=== PATIENT | female | born 1975 | race Caucasian/White ===

== ENCOUNTER 2020-08-08 12:43 | Outpatient (REF) | payer OTHER, SELFPAY ==
--- NOTE | 2020-08-08 12:48 | MM_ITS ---
EXAMINATION: MM SCREENING DIGITAL BREAST TOMOSYNTHESIS, BILATERAL CLINICAL INFORMATION: Screening. Asymptomatic. The lifetime risk of breast cancer based on the Tyrer-Cuzick Model is 7.8%. COMPARISON: Mammography: April 01, 2019 TECHNIQUE: Digital breast tomosynthesis is performed in both the craniocaudal and mediolateral oblique views along with computer-aided detection (CAD). Synthesized 2D images are generated from the tomosynthesis. FINDINGS: The breasts are heterogeneously dense, which may obscure small masses (ACR BI-RADS breast composition Category c). There are no significant masses, abnormal calcifications, or other abnormalities. MM/MM tomosynthesis screening BI IMPRESSION: There are no significant changes from prior study. ASSESSMENT: BI-RADS 1: Negative RECOMMENDATION: Routine annual mammography screening. This patient's information was entered into a reminder system with a target due date for their next mammogram.
== END 2020-08-08 12:44 | disposition home or self-care (01) ==
LOC: HO.MAMMO 12:43
PROVIDERS: PCP Student in an Organized Health Care Education/Training Program; Visit Provider Student in an Organized Health Care Education/Training Program
DX: Z12.31 Encounter for screening mammogram for malignant neoplasm of breast (principal)
CPT/HCPCS: 77063; 77067

== ENCOUNTER 2025-05-26 09:42 | Outpatient (REF) | payer OTHER, SELFPAY ==
--- OUTSIDE RECORDS SUMMARY | 2025-05-24 10:45 | XMS_ITS | Encounter Summary ---
Author Organization [facility] Address [address] [place] [address] Care Team Providers Care Director Of Strategic Initiatives Name Role Phone Leon Mclean CNP Primary Care Provider [phone] Reason for Referral * Cardiology (Routine) - Authorized Specialty Diagnoses / Procedures Referred By Lourdes stanton Referred To Contact Cardiology Diagnoses Palpitations Procedures Holter monitor - 48 hour Leon Mclean CNP [address] [place] [address] Phone: tel: fax: [facility] Referral ID Status Reason Start Date Expiration Date V isits Requested Visits Authorized [id number] Authorized 05/24/2025 05/24/2026 1 1 * Consultation (Routine) - Authorized Specialty Diagnoses / Procedures Referred By Lourdes stanton Referred To Contact Podiatry Diagnoses Encounter for physical examination Onychomycosis of great toe Type 2 diabetes mellitus without complication, with long-term current use of insulin ([facility]) Leon Mclean CNP [address] [place] [address] Phone: tel: fax: Boogie Rosas DPM [address] [facility] [address] [place] [id number] Phone: tel: fax: Referral ID Status Reason Start Date Expiration Date Visits Requested Visits Authorized [id number] Authorized Specialty Services Required 05/24/2025 05/24/2026 1 1 * Imaging (Routine) - Closed Specialty Diagnoses / Procedures Referred By Lourdes stanton Referred To Contact Radiology Diagnoses Encounter for screening mammogram for breast cancer Procedures BI Mammogram Screening Tomosynthesis Bilateral Leon Mclean CNP [address] [place] [address] Phone: tel: fax: [facility] Referral ID Status Reason Start Date Expiration Date Visits Re quested Visits Authorized [id number] Closed 05/24/2025 05/24/2026 1 1 Encounter Details Date Type Department Care Team (Late st Contact Info) Description 05/24/2025 10:45 AM EST Office Visit [facility] [address] [place] [address] Leon Mclean CNP [address] [place] [address] Encounter for physical examination (Primary Dx); Encounter for screening mammogram for breast cancer; Encounter for immunization; Onychomycosis of great toe; Palpitations; Type 2 diabetes mellitus without complication, with long-term current use of insulin (HCC) Social History Tobacco Use Types Packs/Day Years Used Date Smoking Tobacco: Never Smokeless Tobacco: Never Alcohol Use Standard Drinks/Week Comments Never 0 (1 standard drink = 0.6 oz pur e alcohol) Depression Answer Date Recorded Patient Health Questionnaire-9 Score 10 05/24/2025 Patient Health Questionnaire-9 Score 10 05/24/2025 Last PHQ-9: Questionnaire Data Not on file 1 07/24/2024 Housing Stability Answer Date Recorded What is your housing situation today? I have bella schroeder 05/24/[address] you li ve. Do you have problems with any of the following? None of the above 05/24/2025 Food Insecurity Answer Date Recorded Within the past 12 months, y ou worried that your food would run out before you got money to buy more: Sometimes True 2024 Within the past 12 months,th e food you bought just didn't last and you didn't have enough money to get more: Sometimes True 05/24/2025 Transportation Answer Date Recorded In the past 12 months, has l ack of transportation kept you from medical appts, meetings, work or from getting things needed for daily living? No 05/24/2025 Utilities Answer Date Recorded In the past 12 months, has t he electric, gas, oil or water company threatened to shut off services in your home? No 05/24/2025 Depression Answer Date Recorded Patient Health Questionnaire-2 Score 3 05/24/2025 Internet Access Answer Date Recorded Internet Access Q1 No 05/24/2025 Internet Access Q2 I cannot afford it 05/24/2025 Comments No Sex and Gender Information Value Date Recorded Sex Assigned at Female 05/19/2022 10:21 AM EDT Legal Sex Female 10:21 AM EDT Gender Identity Choose not to disclose 10:21 AM EDT Sexual Orientation Choose not to disclose 2021 10:21 AM EDT documented as of this encounter Last Filed Vital Signs Vital Sign Reading Time Taken Comments Blood Pressure 148/86 05/24/2025 10:45 AM EST Pulse 84 05/24/2025 10:45 AM EST Temperature 36.3 C (97.3 F) 05/24/2025 10:45 AM EST Respiratory Rate 14 05/24/2025 10:45 AM EST Oxygen Saturation 98% 05/24/2025 10:45 AM EST Inhaled Oxygen Concentration - - Weight 81.2 kg (179 lb) 05/24/2025 10:45 AM EST Height 152.4 cm (5') 05/24/2025 10:45 AM EST Body Mass Index 34.96 05/24/2025 10:45 AM EST documented in this encounter Functional Status * Over the past 2 weeks, how often have you been bothered by any of the following problems? Question Answer Date of Assessment Author Patient Health Questionnaire -2 Score 3 05/24/2025 10:48 AM EST Sa kaya Matta [place] * Little interest or pleasure in doing things Answer Date of Assessment Author Several days 05/24/2025 10:48 AM EST Jeanette Lagos [place] * Feeling down, depressed, or hopeless Answer Date of Assessment Author More than half the days 05/24/2025 10:48 AM EST Jeanette Matta MA * Trouble falling or staying asleep, or sleeping too much Answer Date of Assessment Author Not at all 05/24/2025 10:48 AM Jeanette Reyes MA * Feeling tired or having little energy Answer Date of Assessment Author Nearly every day 05/24/2025 10:48 AM Jeanette Todd MA * Poor appetite or overeating Answer Date of Assessment Author Not at all 05/24/2025 10:48 AM Jeanette Reyes MA * Feeling bad about yourself - or that you are a failure or have let yourself or your family down Answer Date of Assessment Author More than half the days 05/24/2025 10:48 AM Jeanette Adorno MA * Trouble concentrating on things, such as reading the newspaper or watching television Answer Date of Assessment Author Not at all 05/24/2025 10:48 AM Jeanette Reyes MA * Moving or speaking so slowly that other people could have noticed? Or the opposite - being so fidgety or restless that you have been moving around a lot more than usual. Answer Date of Assessment Author More than half the days 05/24/2025 10:48 AM Jeanette Adorno MA * Thoughts that you would be better off or hurting yourself in some way Answer Date of Assessment Author Not at all 05/24/2025 10:48 AM Jeanette Reyes MA * Patient Health Questionnaire-9 Score Answer Date of Assessment Author 10 05/24/2025 10:48 AM Jeanette Reyes MA * How difficult have these problems made it for you to do your work, take care of things at home, or get along with other people? Answer Date of Assessment Author Not difficult at all 05/24/2025 10:48 AM Jeanette Olea MA * Over the last 2 weeks, how often have you been bothered by any of the following problems? Question Answer Date of Assessment Author Feeling nervous, anxious, or on edge 2 05/24/2025 10:48 AM Sa kaya Adorno MA Not being able to stop or control worrying 2 05/24/2025 10:48 AM Sa kaya Adorno MA Worrying too much about different things 2 05/24/2025 10:48 AM Sa kaya Adorno MA Trouble relaxing 0 05/24/2025 10:48 AM Jeanette Adorno MA Being so restless that it is hard to sit still 2 05/24/2025 10:48 AM Sa kaya Adorno MA Becoming easily annoyed or irritable 3 05/24/2025 10:48 AM Sa kaya Adorno MA Feeling afraid as if somethi ng awful might happen 1 05/24/2025 10:48 AM Sa kaya Adorno MA MARYBEL-7 Total Score 12 05/24/2025 10:48 AM Jeanette Adorno MA documented as of this encounter Progress Notes * Leon Mclean CNP - 05/24/2025 10:45 AM EST Subjective: Patricia Wolfe is a 49 y.o. choose not to disclose pt with PMH of hypertension, HLD, DM who presents to the office for a transfer patient visit. Previous PCP Beth Wheeler MD . Interim history: Pt last seen by prior PCP 05/2024 for f/u. At this point hypertension deemed stable. As for her T2DM, last A1c of 8.9 pt taking trulicity 1.5mg. She reports she hasn't used Trulicity for some time because her refrigerator was broken for awhile but now it is functioning properly. She does not have med on hand. She also is reporting polyuria at nighttime. Denies any other associated symptoms. Reports she has taken metformin in the past but did not tolerate it due to adverse side effects. Current concerns: Tachycardia: reporting x 1 w, last few about a few minutes, happens randomly, reports SOB when thishappens as well as mild CP. She denies having those symptoms currently, the symptoms are intermittent in nature. 2. Foot fungus: pt reports fungus on her toenail, unspecified toenail and declines exam today Problem List[1] Surgical History[2] Family History[3] Social History Living situation: has secure housing Employment/Education: Diet/exercise: not reported Substance use: denies all substance use. Sexual activity: AMAB partner, requests STI testing Contraception: none, not seeking Mental health: Patient Health Questionnaire-9 Score: 10 (05/24/2025 10:48 AM) Patient Health Questionnaire-2 Score: 3 (05/24/2025 10:48 AM) Thoughts that you would be better off or hurting yourself in some way: Not at all (05/24/2025 10:48 AM) MARYBEL-7 Total Score: 12 (05/24/2025 10:48 AM) Patient's last menstrual period was 05/13/2025. Allergies[4] Review of Systems Vitals: 05/24/25 1045 BP: (!) 148/86 BP Location: Left arm Patient Position: Sitting BP Cuff Size: Adult Pulse: 84 Resp: 14 Temp: 97.3 ??F (36.3 ??C) TempSrc: Oral SpO2: 98% Weight: 179 lb (81.2 kg) Height: 5' (1.524 m) Physical Exam Vitals reviewed. Constitutional: General: Patricia is not in acute distress. Appearance: Normal appearance. Patricia is not ill-appearing, toxic-appearing or diaphoretic. HENT: Head: Normocephalic and atraumatic. Cardiovascular: Rate and Rhythm: Normal rate and regular rhythm. Pulses: Normal pulses. Heart sounds: Normal heart sounds. No murmur heard. No friction rub. No gallop. Pulmonary: Effort: Pulmonary effort is normal. No respiratory distress. Breath sounds: Normal breath sounds. No stridor. No wheezing, rhonchi or rales. Chest: Chest wall: No tenderness. Musculoskeletal: Right lower leg: No edema. Left lower leg: No edema. Neurological: General: No focal deficit present. Mental Status: Patricia is alert and oriented to person, place, and time. Mental status is at baseline. Psychiatric: Mood and Affect: Mood normal. Behavior: Behavior normal. Thought Content: Thought content normal. Judgment: Judgment normal. Assessment & Plan Encounter for physical examination 49 y/o Female with physical exam showing no acute abnormalities. 1. Anticipatory guidance discussed. Specific topics reviewed: drugs, ETOH, and tobacco, importance of regular dental care, importance of regular exercise, importance of varied diet, minimize junk food, and sex; STD and prevention as appropriate. 2. Age appropriate screenings discussed 3. Pt agrees to flu shot and PCV20 4. Pt requests STI testing today. Routine Screening and Health Maintenance Optometry: Yes Dentist: Yes ASCVD risk: 49 y.o. adult The 10-year ASCVD risk score (Nery TORREZ, et al., 2019) is: 3.9% Values used to calculate the score: Age: 49 years Sex: Female Is Non- : No Diabetic: Yes Tobacco smoker: No Systolic Blood Pressure: 148 mmHg Is BP treated: Yes HDL Cholesterol: 62 mg/dL Total Cholesterol: 221 mg/dL Lab Review: orders written for new lab studies as appropriate; see orders Routine Cancer Screening Breast CA: due pt referred today Cervical CA: due, will complete this at schedule f/u. Colon CA: neg Cologuard 12/2023, next due 12/2026 Orders: Lipid Panel, Standard Comprehensive Metabolic Panel Albumin, Random Urine W/Creatinine CBC auto differential POCT A1c POCT glucose manually resulted Referral to Podiatry; Future Hepatitis B Surface Antibody, Qualitative; Future Hepatitis B Core Antibody, Total; Future Hepatitis B surface antigen, EIA; Future Chlamydia/N. Gonorrhoeae RNA, TMA, Vaginal HIV-1/2 Antigen and Antibodies, Fourth Generation, with Reflexes; Future Hepatitis C Antibody with Reflex to HCV, RNA, Quantitative, Real-Time PCR; Future Encounter for screening mammogram for breast cancer Orders: BI Mammogram Screening Tomosynthesis Bilateral Encounter for immunization Orders: FLU VACCINE TRIVALENT [id number] (Fluarix) 19 yrs + PCV-20 VACCINE 6 wks + Onychomycosis of great toe Exam declined by pt today However she requests referral to deputy sheriff generalist which was placed today Orders: Referral to Podiatry; Future Palpitations Palpitations are transient in nature therefore will obtain holter monitoring to evaluate possible etiologies. Pt has CVD risk factors including DM, HLD, and hypertension. If holter monitor is unremarkeable may consider TTE to r/o structural etiologies. Orders: Holter monitor - 48 hour; Future Type 2 diabetes mellitus without complication, with long-term current use of insulin (HCC) Lab Results Component Value Date HGBA1C 11.3 (A) 05/24/2025 A1c is uncontrolled and pt is symptomatic with polyuria. I ordered routine labs including urine protein levels for pt to complete. We will reinitiate Trulicity at starting dose. Considered adjunctive metformin however previously not tolerated by pt, considered glipizide however reports hypoglycemia with this med. We will initiate jardiance at 10mg daily to reduce risk of cardiovascular mortality and improve glycemic control Orders: Trulicity 0.75 MG/0.5ML solution auto-injector; Inject 0.5 mL under the skin 1 (one) time per week. empagliflozin (Jardiance) 10 MG; Take 1 tablet (10 mg) by mouth Once per day. Current Medications[5] Immunization History Administered Date(s) Administered Influenza injectable quadrivalent IIV4 with preservative 05/27/2018 Influenza injectable quadrivalent preservative free 09/09/2016, 06/18/2017, 04/15/2019, 04/12/2020,10/04/2020 Influenza, seasonal, injectable, preservative free 06/10/2014, 06/10/2024, 05/24/2025 Pneumococcal Conjugate PCV 20 05/24/2025 Tdap 05/27/2018 Follow up in about 1 month (around 06/23/2025) for f/u for pap smear. AND DM f/u [1] Patient Active Problem List Diagnosis Amenorrhea Diabetes mellitus (HCC) Open angle with borderline intraocular pressure Essential hypertension Pure hypercholesterolemia [2] No past surgical history on file. [3] No family history on file. [4] No Known Allergies [5] Current Outpatient Medications Medication Sig Dispense Refill Alcohol Swabs (Alcohol Prep) 70 % pads USE THREE DAILY 100 each 11 Aspirin Adult Low Strength 81 MG EC tablet TAKE ONE TABLET EVERY EVENING 60 tablet 11 Blood Glucose Monitoring Suppl (FreeStyle glucose monitoring) kit 1 each in the morning and at bedtime. 1 each 3 Blood Pressure kit Check blood pressure daily 1 kit 0 Continuous Glucose Plasterer Journeyman (FreeStyle Lorraine 2 Truxton) device Scan sensor every 8 hours 1 each 0 Continuous Glucose Sensor (FreeStyle Lorraine 2 Sensor) misc Apply 1 sensor every 14 days 2 each 2 Easy Touch Lancets 33G/Twist misc TEST BLOOD SUGAR THREE TIMES DAILY 100 each 0 empagliflozin (Jardiance) 10 MG Take 1 tablet (10 mg) by mouth Once per day. 30 tablet 11 glucose blood (FREESTYLE LITE) test strip TEST BLOOD SUGAR THREE TIMES DAILY USE TO TEST BLOOD SUGAR THREE TIMES DAILY 100 strip 0 Heartburn Relief 10 MG tablet TAKE ONE TABLET EVERY MORNING NEEDED 30 tablet 3 hydroCHLOROthiazide (HYDRODiuril) 25 MG tablet TAKE ONE TABLET EVERY MORNING 30 tablet 11 ibuprofen 600 MG tablet Take 1 tablet by mouth every 6 (six) hours. lisinopril 40 MG tablet TAKE ONE TABLET EVERY MORNING 90 tablet 3 simvastatin (Zocor) 40 MG tablet Take 1 tablet (40 mg) by mouth at bedtime. 90 tablet 0 Trulicity 0.75 MG/0.5ML solution auto-injector Inject 0.5 mL under the skin 1 (one) time per week. 2 mL 1 No current facility-administered medications for this visit. documented in this encounter Miscellaneous Notes * Assessment & Plan Note - Leon Mclean CNP - 05/24/2025 10:45 AM EST Associated Problem(s): Diabetes mellitus (HCC) Lab Results Component Value Date HGBA1C 11.3 (A) 05/24/2025 A1c is uncontrolled and pt is symptomatic with polyuria. I ordered routine labs including urine protein levels for pt to complete. We will reinitiate Trulicity at starting dose. Considered adjunctive metformin however previously not tolerated by pt, considered glipizide however reports hypoglycemia with this med. We will initiate jardiance at 10mg daily to reduce risk of cardiovascular mortality and improve glycemic control Orders: Trulicity 0.75 MG/0.5ML solution auto-injector; Inject 0.5 mL under the skin 1 (one) time per week. empagliflozin (Jardiance) 10 MG; Take 1 tablet (10 mg) by mouth Once per day. documented in this encounter Plan of Treatment Upcoming Encounters Date Type Department Care Team (Late st Contact Info) Description 07/06/2025 11:00 AM EST Procedure Visit [facility] [address], [place] [id number] Leon Mclean CNP [address] [place] [address] Scheduled Orders Name Type Priority Associated Diagnoses Orde r Schedule Lipid Panel, Standard Lab Routine Encounter for physical examination Ordered: 05/24/2025 Comprehensive Metabolic Panel Lab Routine Encounter for physical examination Ordered: 05/24/2025 Albumin, Random Urine W/Creatinine Lab Routine Encounter for physical examination Ordered: 05/24/2025 CBC auto differential Lab Routine Encounter for physical examination Ordered: 05/24/2025 BI Mammogram Screening Tomosynthesis Bilateral Imaging Routine Encounter for screening mammogram for breast cancer Ordered: 05/24/2025 Hepatitis B Surface Antibody, Qualitative Lab Routine Encounter for physical examination Expected: 05/24/2025 (Approximate), Expires: 05/24/2026 Hepatitis B Core Antibody, Total Lab Routine Encounter for physical examination Expected: 05/24/2025 (Approximate), Expires: 05/24/2026 Hepatitis B surface antigen, EIA Lab Routine Encounter for physical examination Expected: 05/24/2025 (Approximate), Expires: 05/24/2026 Chlamydia/N. Gonorrhoeae RNA, TMA, Vaginal Microbiology Routine Encounter for physical examination Ordered: 05/24/2025 HIV-1/2 Antigen and Antibodies, Fourth Generation, with Reflexes Lab Routine Encounter for physical examination Expected: 05/24/2025 (Approximate), Expires: 05/24/2026 Hepatitis C Antibody with Reflex to HCV, RNA, Quantitative, Real-Time PCR Lab Routine Encounter for physical examination Expected: 05/24/2025, Expires: 05/24/2026 Holter monitor - 48 hour Cardiac Services Routine Palpitations Expected: 05/24/2025 (Approximate), Expires: 05/24/2027 Scheduled Referrals Name Type Priority Associated Diagnoses Orde r Schedule Referral to Podiatry Outpatient Referral Routine Encounter for physical examination Onychomycosis of great toe Expected: 05/24/2025 (Approximate), Expires: 05/24/2026 documented as of this encounter Procedures Procedure Name Priority Date/Time Associated Diagnosis Comments POCT GLYCATED HEMOGLOBIN, TOTAL Routine 05/24/2025 11:02 AM EST Encounter for physical examination POCT GLUCOSE Routine 05/24/2025 11:01 AM EST Encounter for physical examination documented in this encounter Results * (ABNORMAL) POCT A1c (05/24/2025 11:02 AM EST) Hemoglobin A1C 11.3(A) 4.0 - 5.7 % QC Media Lot # Comment:[id number] Lot# Expiration Date Comment:11/10/2026 Blood 05/24/2025 11:0 2 AM EST Result [facility] POINT OF CARE TEST ENTER/ EDIT ORDERABLES Final Result * (ABNORMAL) POCT glucose manually resulted (05/24/2025 11:01 AM EST) Pathologist [facility] Glucose Blood, POC 275(A) 60 - 200 mg/dL QC Media Lot # Comment:[id number] Lot# Expiration Date Comment:08/27/2025 Blood Capillary blood specimen / Unknown 05/24/2025 11:01 AM EST Result [facility] POINT OF CARE TEST ENTER/ EDIT ORDERABLES Final Result documented in this encounter Visit Diagnoses Diagnosis Encounter for physical examination- Primary Encounter for screening mammogram for breast cancer Encounter for immunization Onychomycosis of great toe Palpitations Type 2 diabetes mellitus without complication, with long-term current use of insulin (HCC) documented in this encounter Additional Health Concerns Assessment Noted Time PHQ-9 Depression Total Score: 10 025 10:48 AM EST documented as of this encounter Care Teams Director Of Strategic Initiatives Relationship Specialty Start Date End Date Leon Mclean CNP [address] [place] [address] PCP - General Family Medicine 05/22/25 documented as of this encounter
--- OUTSIDE RECORDS SUMMARY | 2025-05-26 11:12 | XMS_ITS | Encounter Summary ---
Author Organization [employer] Address [address] [place] [address] Care Team Providers Care Glass Mould Cleaner Name Role Phone Leon Mclean CNP Primary Care Provider [phone] Reason for Visit * Reason Comments Care Coordination CHW outreach for SDO H housing search-referral completed Encounter Details Date Type Department Care Team (Latest Contact Info) Description 05/24/2025 Patient Outreach [facility] MEDICINE [address] [place] [address] Leon Mclean CNP [address] [place] [place] [address] Care Coordination (CHW outreach for SDOH housing search-referral completed ) Social History Tobacco Use Types Packs/Day Years [...] AM EDT documented as of this encounter Functional Status * Over the past 2 weeks, how often have you been bothered by any of the following problems? Question Answer Date of Assessment Author Patient Health Questionnaire -2 Score 3 05/24/2025 10:48 AM Sa kaya Adorno [place] * Little interest or pleasure in doing things Answer Date of Assessment Author Several days 05/24/2025 10:48 AM Jeanette Reyes MA * Feeling down, depressed, or hopeless Answer Date of Assessment Author More than half the days 05/24/2025 10:48 AM Jeanette Adorno MA * Trouble falling or staying asleep, [...] MARYBEL-7 Total Score 12 05/24/2025 10:48 AM EST Jeanette Matta MA documented as of this encounter Progress Notes * Frantz Erickson - 05/24/2025 12:56 PM EST CHW Frantz Erickson, placed outbound call to patient for assistance with SDOH as a referral was received by the provider. Patient's name and were confirmed. Patient screened positive for the following SDOH housing insecurities. Patient states is staying with her friend but is searching for her own apartment. CHW referral patient to the list of application mail out to her address on file. Patient verbalizes understanding, and able to agree with plan to follow up herself. Patient educated on extended clinic hours on Mondays through Wednesdays, and Walk-In Urgent Care Located in [facility]. Patient provided with after-hours line for [facility], , which offer night time triage service and option to transfer to bridge/structure inspection team leader provider if needed. documented in this encounter Plan of Treatment Upcoming Encounters Date Type Department Care Team (Late st Contact Info) Description 07/06/2025 11:00 AM EST Procedure Visit [facility] MED & PEDS [address] [place] [address] Leon Mclean CNP [address] [place] [address] documented as of this encounter Visit Diagnoses Not on filedocumented in this encounter Additional Health Concerns Assessment Noted Time PHQ-9 Depression Total Score: 10 025 10:48 AM EST documented as of this encounter Care Teams Glass Mould Cleaner Relationship Specialty Start Date End Date Leon Mclean CNP [address] [place] [address] PCP - General Family Medicine 05/22/25 documented as of this encounter
--- OUTSIDE RECORDS SUMMARY | 2025-05-26 11:12 | XMS_ITS | Encounter Summary ---
Author Organization [employer] Address [address] [facility] [address] [place] [address] Care Team Providers Care Horseback Riding Instructor Name Role Phone Beth Wheeler MD Primary Care Provider [phone] Leon Mclean CNP Primary Care Provider [phone] Reason for Visit * Reason Comments Med Refill Encounter Details Date Type Department Care Team (Late st Contact Info) Description 11/07/2023 Refill [facility] MED & PEDS [address] [place] [address] Beth Wheeler MD [address] [place] [address] Social History Tobacco Use Types Packs/Day Years Used Date Smoking Tobacco: Never Smokeless Tobacco: Never Comments Unknown Sex and Gender Information Value Date Recorded Sex Assigned at Female 05/19/2022 10:21 AM EDT Legal Sex Female 10:21 AM EDT Gender Identity Choose not to disclose 10:21 AM EDT Sexual Orientation Choose not to disclose 2021 10:21 AM EDT documented as of this encounter Plan of Treatment Upcoming Encounters Date Type Department Care Team (Late st Contact Info) Description 07/06/2025 11:00 AM EST Procedure Visit [facility] MED & PEDS [address] [place] [address] Leon Mclean CNP [address] [place] [address] documented as of this encounter Visit Diagnoses Not on filedocumented in this encounter Care Teams Horseback Riding Instructor Relationship Specialty Start Date End Date Beth Wheeler MD [address] [place] [id number] PCP - General Family Medicine 11/07/15 05/21/25 Leon Mclean CNP [address] [place] [address] PCP - General Family Medicine 05/22/25 documented as of this encounter
--- OUTSIDE RECORDS SUMMARY | 2025-05-26 11:12 | XMS_ITS | Encounter Summary ---
Author Organization [employer] Address [address] [facility] [place] [address] Care Team Providers Care Tax Investigator Name Role Phone Leon Mclean KISHAN Primary Care Provider [phone] Reason for Visit * Reason Onset Date Comments chart prep 05/22/2025 Encounter Details Date Type Department Care Team ([facility] st Contact Info) Description 05/22/2025 Telephone C [facility]S [address] [place] [address] Beth Wheeler MD [address] [place] [address] chart prep Social History Tobacco Use Types Packs/Day Years Used Date Smoking Tobacco: Never Smokeless Tobacco: Never Alcohol Use Standard Drinks/Week Comments Never 0 (1 standard drink = 0.6 oz pur e alcohol) Housing Stability Answer Date Recorded What is your housing situation today? I have bella schroeder 03/04/[address] you li ve. Do you have problems with any of the following? None of the above 03/04/2024 Food Insecurity Answer Date Recorded Within the past 12 months, y ou worried that your food would run out before you got money to buy more: Never True 03/04/2024 Within the past 12 months,th e food you bought just didn't last and you didn't have enough money to get more: Never True Transportation Answer Date Recorded In the past 12 months, has l ack of transportation kept you from medical appts, meetings, work or from getting things needed for daily living? No 03/04/2024 Utilities Answer Date Recorded In the past 12 months, has t he electric, gas, oil or water company threatened to shut off services in your home? No 03/04/2024 Internet Access Answer Date Recorded Internet Access Q1 Yes 03/21/2024 Internet Access Q2 Not on file 03/21/2024 Comments Unknown Sex and Gender Information Value Date Recorded Sex Assigned at Female 05/19/2022 10:21 AM EDT Legal Sex Female 10:21 AM EDT Gender Identity Choose not to disclose 10:21 AM EDT Sexual Orientation Choose not to disclose 2021 10:21 AM EDT documented as of this encounter Miscellaneous Notes * Telephone Encounter - Jeanette Matta MA - 05/22/2025 9:53 AM EST Chart Prep Labs: not applicable Images: not applicable Referrals: not applicable Vaccines due: Covid, Flu, PCV20, and Hep B Screenings: mammogram, pap smear, foot exam, and LMP Overdue care gaps: A1c, Glucose, SBIRT, SDOH, PHQ-9, MARYBEL-7, Oral health screening, and Disability screen documented in this encounter Plan of Treatment Upcoming Encounters Date Type Department Care Team (Late st Contact Info) Description 07/06/2025 11:00 AM EST Procedure Visit [facility] MED & PEDS [address] [place] [address] Leon Mclean CNP [address] [place] [address] documented as of this encounter Visit Diagnoses Not on filedocumented in this encounter Care Teams Tax Investigator Relationship Specialty Start Date End Date Leon Mclean CNP [address] [place] [address] PCP - General Family Medicine 05/22/25 documented as of this encounter
--- OUTSIDE RECORDS SUMMARY | 2025-05-26 11:13 | XMS_ITS | Encounter Summary ---
Author Organization [employer] Address [address] [facility] [address] [place] [address] Care Team Providers Care Field Supervisor Seed Production Name Role Phone Leon Mclean CNP Primary Care Provider [phone] Encounter Details Date Type Department Care Team (Latest Contact Info) Description 05/24/2025 Travel Social History Tobacco Use Types Packs/Day Years [...] Adorno [place] documented as of this encounter Plan of Treatment Upcoming Encounters Date Type Department Care Team (Late st Contact Info) Description 07/06/2025 11:00 AM EST Procedure Visit [facility] MED & PEDS [address] [place] [address] Leon Mclean, COMMERCIAL SUBCONTRACTOR [address] [place] [address] documented as of this encounter Visit Diagnoses Not on filedocumented in this encounter Additional Health Concerns Assessment Noted Time PHQ-9 Depression Total Score: 10 025 10:48 AM EST documented as of this encounter Care Teams Field Supervisor Seed Production Relationship Specialty Start Date End Date Leon Mclean CNP [address] [place] [address] PCP - General Family Medicine 05/22/25 documented as of this encounter
--- OUTSIDE RECORDS SUMMARY | 2025-05-26 11:13 | XMS_ITS | Clinical Summary ---
Author Organization [employer] Address [address] [place] [address] Care Team Providers Care Medical Diagnostic Radiographer Name Role Phone Leon Mclean RIVET CATCHER Primary Care Provider [phone] Allergies No known active allergies Medications * This document contains information received from the source organization and may not represent a complete record from that organization. ibuprofen 600 MG tablet Take 1 tablet by mouth every 6 (six) hours. 021 Active Blood Glucose Monitoring Suppl (FreeStyle glucose monitoring) kitIndications:Type 2 diabetes mellitus without complication, without long-term current use of insulin ([facility]) 1 each in the morning and at bedtime. 1 each 3 023 Active Alcohol Swabs (Alcohol Prep) 70 % pads USE THREE DAILY 100 each 11 024 Active Blood Pressure kit Check blood pressure daily 1 kit 024 Active Continuous Glucose All Source Intelligence Technician (FreeStyle Lorraine 2 Brady) deviceIndications:Type 2 diabetes mellitus without complication, with long-term current use of insulin ([facility]) Scan sensor every 8 hours 1 each 024 Active Continuous Glucose Sensor (FreeStyle Lorraine 2 Sensor) mis Apply 1 sensor every 14 days 2 each 2 024 Active glucose blood (FREESTYLE LITE) test stripIndications:Type 2 diabetes mellitus without complications ([facility]) TEST BLOOD SUGAR THREE TIMES DAILY USE TO TEST BLOOD SUGAR THREE TIMES DAILY 100 strip 025 Active Easy Touch Lancets 33G/Twist miscIndications:Type 2 diabetes mellitus without complication, without long-term current use of insulin ([facility]) TEST BLOOD SUGAR THREE TIMES DAILY 100 each 025 Active Heartburn Relief 10 MG tablet TAKE ONE TABLET EVERY MORNING NEEDED 30 tablet 3 07/08/2 025 Active hydroCHLOROthiazide (HYDRODiuril) 25 MG tablet TAKE ONE TABLET EVERY MORNING 30 tablet 11 Active lisinopril 40 MG tabletIndications:Prim kel hypertension TAKE ONE TABLET EVERY MORNING 90 tablet 3 Active Aspirin Adult Low Strength 81 MG EC tablet TAKE ONE TABLET EVERY EVENING 60 tablet 11 Active simvastatin (Zocor) 40 MG tabletIndications:Pure hypercholesterolemia Take 1 tablet (40 mg) by mouth at bedtime. 90 tablet Active Trulicity 0.75 MG/0.5ML solution auto-injectorIndicatio ns:Type 2 diabetes mellitus without complication, with long-term current use of insulin ([facility]) Inject 0.5 mL under the skin 1 (one) time per week. 2 mL 1 Active empagliflozin (Jardiance) 10 MGIndications:Type 2 diabetes mellitus without complication, with long-term current use of insulin (HCC) Take 1 tablet (10 mg) by mouth Once per day. 30 tablet 11 025 2025 Active Dulaglutide 1.5 MG/0.5ML solution auto-injectorIndicatio ns:Type 2 diabetes mellitus without complication, with long-term current use of insulin ([facility]) Inject 0.5 mL (1.5 mg) under the skin 1 (one) time per week. 2 mL 11 024 2024 Discontinued(T herapy completed) simvastatin (Zocor) 40 MG tabletIndications:Pure hypercholesterolemia TAKE 1 TABLET EVERY NIGHT AT BEDTIME 90 tablet 025 2024 Discontinued(R eorder (will not trigger notification to Pharmacy)) Trulicity 0.75 MG/0.5ML solution auto-injector 2024 Discontinued(R eorder (will not trigger notification to Pharmacy)) Active Problems Problem Noted Date Diagnosed Date Essential hypertension 05/05/2011 Pure hypercholesterolemia 05/05/2011 Diabetes mellitus 03/05/2011 Assessment & Plan (05/24/2025 1:35 PM EST): Lab Results Component Value Date HGBA1C 11.3 [...] (10 mg) by mouth Once per day. Open angle with borderline intraocular pressure 03/05/2011 Amenorrhea 01/13/2011 Encounters * This document contains information received from the source organization and may not represent a complete record from that organization. Date Type Department Care Team Description 05/24/2025 10:45 AM EST Office Visit [facility] [address] [place] [address] Leon Mclean CNP Encounter for physical examination (Primary Dx); Encounter for screening mammogram for breast cancer; Encounter for immunization; Onychomycosis of great toe; Palpitations; Type 2 diabetes mellitus without complication, with long-term current use of insulin (HCC) 05/24/2025 Patient Outreach [facility] [address], [place] [phone] Leon Mclean CNP Care Coordination (CHW outreach for SDOH housing search-referral completed ) 05/24/2025 Travel 05/22/2025 Telephone [facility] [address] [place] [address] Beth Wheeler MD chart prep 05/03/2025 Refill [facility] [address] [place] [address] Pat Herrera RN Pure hypercholesterolemia 02/23/2025 Refill [facility] [address] [place] [address] Beth Wheeler MD Primary hypertension from Last 3 Months Immunizations Immunization Administration Dates Next Due Influenza injectable quadriv alent IIV4 with preservative 05/27/2018 Influenza injectable quadriv alent preservative free 10/04/2020,04/12/2020,04/15/2019,2016,09/09/2016 Influenza, seasonal, injecta ble, preservative free 05/24/2025,06/10/2024,06/10/2014 Pneumococcal Conjugate PCV 20 05/24/2025 Tdap 05/27/2018 Social History Tobacco Use Types Packs/Day Years Used Date Smoking Tobacco: Never Smokeless Tobacco: Never Tobacco Cessation:Counseling Given: Not Answered Alcohol Use Standard Drinks/Week Comments Never 0 [...] not to disclose 2021 10:21 AM EDT Last Filed Vital Signs Vital Sign Reading [...] Mass Index 34.96 05/24/2025 10:45 AM EST Plan of Treatment Upcoming Encounters Date Type Department Care Team (Late st Contact Info) Description 07/06/2025 11:00 AM EST Procedure Visit [facility] [address], [place] [phone] McleanLeon, [facility] [address] [place], [place] [phone] Health Maintenance Due Date Last Done Comments CT Colonography 1975 Colonoscopy 1975 FIT 1975 Sigmoidoscopy 1975 Disability Screening 1975 Family Planning (PISQ) 09/26/1990 Diabetes: Urine Protein Screening 09/26/1994 Hepatitis B Vaccines (1 of 3 - 19+ 3-dose series) 09/26/1994 Pap Smear 09/26/1996 Mammogram 08/08/2022 08/08/2020, 04/04/2019 Lipid Panel 07/23/2023 07/23/2022, 06/20/2020 Cervical Cancer Screening 11/17/2023 HPV/Cotest 11/17/2023 11/16/2018 FOBT 01/06/2025 01/07/2024 Diabetes: Foot Exam 03/14/2025 03/14/2024, 03/14/2024, 03/14/2024, Additional history exists COVID-19 Vaccine ( - season) 2025 Diabetes: Hemoglobin A1C 08/24/2025 025, 06/10/2024, 12/31/2023, Additional history exists Zoster Vaccines (1 of 2) 09/26/2025 Depression Monitoring 11/21/2025 05/24/2025, 025 Alcohol/Substance Use Screening 05/24/2026 05/24/2025 SDOH Screening 05/24/2026 05/24/2025 Tobacco Screening 05/24/2026 05/24/2025 Eye Exam 06/30/2026 06/30/2024 Colorectal Cancer Screening 01/06/2027 FIT DNA/Cologuard 01/06/2027 01/07/2024 DTaP/Tdap/Td Vaccines (2 - Td or Tdap) 05/27/2028 05/27/2018 RSV Patients and Patients Aged 60 years or older (1 - 1-dose 75+ series) 09/26/2050 HIV Screening Completed 05/28/2020, 08/05/2019 Hepatitis C Screening Completed 05/28/2020, 020 Influenza Vaccine Completed 05/24/2025, , 10/04/2020, Additional history exists Pneumococcal Vaccine: Pediatrics (0 to 5 Years) and At-Risk Patients (6 to 49) Years Completed 05/24/2025 HIB Vaccines Aged Out No longer eligi ble based on patient's age to complete this topic HPV Vaccines Aged Out No longer eligi ble based on patient's age to complete this topic Hepatitis A Vaccines Aged Out No long er eligible based on patient's age to complete this topic IPV Vaccines Aged Out No longer eligi ble based on patient's age to complete this topic Meningococcal B Vaccine Aged Out No l onger eligible based on patient's age to complete this topic Meningococcal Vaccine Aged Out No navi dilan eligible based on patient's age to complete this topic RSV under 20 months Aged Out No longe r eligible based on patient's age to complete this topic Rotavirus Vaccines Aged Out No longer eligible based on patient's age to complete this topic Procedures Procedure Name Priority Date/Time Associated Diagnosis Comments POCT GLYCATED HEMOGLOBIN, TOTAL Routine 05/24/2025 11:02 AM EST Encounter for physical examination POCT GLUCOSE Routine 05/24/2025 11:01 AM EST Encounter for physical examination AMB REFERRAL TO OPHTHALMOLOGY Routine 06/30/2024 Type 2 diabetes mellitus without complication, with long-term current use of insulin (CMS/HCC) LAB COLOGUARD COLON CANCER SCREEN Routine 01/07/2024 11:37 AM EDT Encounter for screening for malignant neoplasm of colon LIPID PANEL, STANDARD Routine 07/23/2022 10:26 AM EST Type 2 diabetes mellitus without complication, without long-term current use of insulin (CMS/HCC) MAMMOGRAM GENERIC Routine 08/08/2020 12: 48 PM EST [facility] HISTORICAL HEPATITIS C AB W/REFL TO HCV RNA, QN, PCR Routine 05/28/2020 10:31 AM EST HIV 1/2 ANTIGEN/ANTIBODY, FOURTH GENERATION W/RFL Routine 05/28/2020 10:31 AM EST [facility] HISTORICAL HPV MRNA E6/E7 Routine 11/16/2018 1:56 PM EDT from Last 3 Months or Most Recently Relevant to Health Maintenance Results * (ABNORMAL) POCT A1c (05/24/2025 11:02 AM EST) Hemoglobin A1C 11.3(A) 4.0 - 5.7 % QC Media Lot # Comment:[id number] Lot# Expiration Date Comment:11/10/2026 Blood 05/24/2025 11:0 2 AM EST [facility] POINT OF CARE TEST ENTER/ EDIT ORDERABLES Final Result * (ABNORMAL) POCT glucose manually resulted (05/24/2025 11:01 AM EST) Glucose Blood, POC 275(A) 60 - 200 mg/dL QC Media Lot # Comment:[id number] Lot# Expiration Date Comment:08/27/2025 Blood Capillary blood specimen / Unknown 05/24/2025 11:01 AM EST [facility] POINT OF CARE TEST ENTER/ EDIT ORDERABLES Final Result * Referral to Ophthalmology (06/30/2024) Beth Wheeler MD OUTPATIENT REFERRAL ORDERABLES F inal Result * Cologuard?? colon cancer screening (01/07/2024 11:37 AM EDT) Cologuard Result Negative Negative 01/13/20 6:22 AM EDT [facility] (CLIA #:[id number]) Comment: NEGATIVE TEST RESULT. A negative Cologuard result indicates a low likelihood that a colorectal cancer (CRC) or advanced adenoma (adenomatous polyps with more advanced pre-malignant features) is present. The chance that a person with a negative Cologuard test has a colorectal cancer is less than 1 in 1500 (negative predictive value >99.9%) or has an advanced adenoma is less than 5.3% (negative predictive value 94.7%). These data are based on a prospective cross-sectional study of 10,000 individuals at average risk for colorectal cancer who were screened with both Cologuard and colonoscopy. (Pola Mendoza al, N Engl J Med 2014;370(14):0793-8122) The normal value (reference range) for this assay is negative. COLOGUARD RE-SCREENING RECOMMENDATION: Periodic colorectal cancer screening is an important part of preventive healthcare for asymptomatic individuals at average risk for colorectal cancer. Following a negative Cologuard result, the [place] [employer] and U.S. Multi-Society Task Force screening guidelines recommend a Cologuard re-screening interval of 3 years. References: [place] [employer] Guideline for Colorectal Cancer Screening: https://www.cancer.org/cancer/faomw-hyjyim-kejgud/uugsrosbe-aayamweov-jsgpqvj/ac s-rec ommendations.html.; Ceferino DK, Urbano CR, Tony RossK, Colorectal Cancer Screening: Recommendations for Physicians and Patients from the U.S. Multi-Society Task Force on Colorectal Cancer Screening , Am J Gastroenterology 2017; 112:1618-1335. TEST DESCRIPTION: Composite algorithmic analysis of stool DNA-biomarkers with hemoglobin immunoassay. Quantitative values of individual biomarkers are not reportable and are not associated with individual biomarker result reference ranges. Cologuard is intended for colorectal cancer screening of adults of either sex, 45 years or older, who are at average-risk for colorectal cancer (CRC). Cologuard has been approved for use by the U.S. FDA. The performance of Cologuard was established in a cross sectional study of average-risk adults aged 50-84. Cologuard performance in patients ages 45 to 49 years was estimated by sub-group analysis of near-age groups. Colonoscopies performed for a positive result may find as the most clinically significant lesion: colorectal cancer [4.0%], advanced adenoma (including sessile serrated polyps greater than or equal to 1cm diameter) [20%] or non- advanced adenoma [31%]; or no colorectal neoplasia [45%]. These estimates are derived from a prospective cross-sectional screening study of 10,000 individuals at average risk for colorectal cancer who were screened with both Cologuard and colonoscopy. (Pola Mendoza al, N Engl J Med 2014;370(14):9598-3214.) Cologuard may produce a false negative or false positive result (no colorectal cancer or precancerous polyp present at colonoscopy follow up). A negative Cologuard test result does not guarantee the absence of CRC or advanced adenoma (pre-cancer). The current Cologuard screening interval is every 3 years. ([place] [employer] and U.S. Multi-Society Task Force). Cologuard performance data in a 10,000 patient pivotal study using colonoscopy as the reference method can be accessed at the following location: www.Xplore Mobility.MotionDSP/results. Additional description of the Cologuard test process, warnings and precautions can be found at www.Benu [email or web address] [email or web address].com. Stool specimen (specimen) 01/07/2024 11:37 AM EDT 01/09/2024 1:02 PM EDT us Beth Wheeler MD LAB MOLECULAR DIAGNOSTICS ORDERA BLES Final Result [facility] (CLIA #:[id number]) [address] [place] [address], * (ABNORMAL) Lipid Panel, Standard (07/23/2022 10:26 AM EST) Cholesterol, Total 221(H) <200 mg/dL [facility] [employer] [facility] [employer] HDL Cholesterol 62 > OR = 50 mg/dL [facility] [employer] [facility] [employer] Triglycerides 236(H) <150 mg/dL [facility] [employer] [facility] [employer] Comment: If a non-fasting specimen was collected, consider repeat triglyceride testing on a fasting specimen if clinically indicated. Mitul et al. J. of Clin. Lipidol. 2015;9:129-169. LDL Cholesterol 123(H) mg/dL (calc) [facility] [employer] [facility] [employer] Comment: Reference range: <100 Desirable range <100 mg/dL for primary prevention; <70 mg/dL for patients with CHD or diabetic patients with > or = 2 CHD risk factors. LDL-C is now calculated using the Ac calculation, which is a validated novel method providing better accuracy than the Friedewald equation in the estimation of LDL-C. Deep SS et al. ЮЛИЯ. 2013;310(19): 5872-8163 (http://education.Next Jump/faq/ZJJ774) Chol/HDLC Ratio 3.6 <5.0 (calc) [facility] [place] [facility] Non-HDL Cholesterol 159(H) <130 mg/dL (calc) [facility] [employer] [facility] [employer] Comment: For patients with diabetes plus 1 major ASCVD risk factor, treating to a non-HDL-C goal of <100 mg/dL (LDL-C of <70 mg/dL) is considered a therapeutic option. Blood Venous blood specimen / Unknown 07/23/2022 10:26 AM EST 07/23/2022 10:27 AM EST Narrative [facility] - 07/23/2022 8:19 PM EST FASTING:YES FASTING: YES us Beth Wheeler MD LAB BLOOD ORDERABLES Final Resul t [facility] [address] [facility] [place] [address] [facility] [employer] [address] [facility], ([address]) [place] [address] * Mammography Report 1 (08/08/2020 12:48 PM EST) Anatomical Region Laterality Modality Breast Bilateral Mammography 08/08/2020 12:4 8 PM EST Narrative 08/09/2020 9:48 AM EST Refer to the Notes tab for result details [facility] Procedure: Mammography Report 1 Procedure Note ProviderRebecca MD - 10/11/2022 Refer to the Notes tab for result details [facility] Procedure: Mammography Report 1 Beth Wheeler MD IMG BI PROCEDURES Final Result * HEPATITIS C AB W/REFL TO HCV RNA, QN, PCR (05/28/2020 10:31 AM EST) HEPATITIS C ANTIBODY NON-REACT ALVIN NON-REACT ALVIN [facility] INDEX 0.03 <1.00 [facility] Comment: HCV antibody was non-reactive. There is no laboratory evidence of HCV infection. In most cases, no further action is required. However, if recent HCV exposure is suspected, a test for HCV RNA (test code 78132) is suggested. For additional information please refer to http://Dynex.Skylabs/faq/JVT47j8 (This link is being provided for informational/ educational purposes only.) HEPATITIS C ANTIBODY NON-REACT ALVIN NON-REACT ALVIN [facility] INDEX 0.03 <1.00 [facility] Comment: HCV antibody was non-reactive. There is no laboratory evidence of HCV infection. In most cases, no further action is required. However, if recent HCV exposure is suspected, a test for HCV RNA (test code 96846) is suggested. For additional information please refer to http://Dynex.Skylabs/faq/VNC96y5 (This link is being provided for informational/ educational purposes only.) 05/28/2020 10:3 1 AM EST us Beth Wheeler MD HISTORICAL/NON ORDERABLE LABS Fi nal Result [facility] [address] * HIV 1/2 ANTIGEN/ANTIBODY,FOURTH GENERATION W/RFL (05/28/2020 10:31 AM EST) HIV-1/2 ANTIGEN AND ANTIBODIES, 4TH GENERATION W/ REFLEX NON-REACT ALVIN NON-REACT ALVIN [facility] Comment: HIV-1 antigen and HIV-1/HIV-2 antibodies were not detected. There is no laboratory evidence of HIV infection. PLEASE NOTE: This information has been disclosed to you from records whose confidentiality may be protected by state law. If your state requires such protection, then the state law prohibits you from making any further disclosure of the information without the specific written consent of the person to whom it pertains, or as otherwise permitted by law. A general authorization for the release of medical or other information is NOT sufficient for this purpose. For additional information please refer to http://Dynex.Skylabs/faq/NUQ853 (This link is being provided for informational/ educational purposes only.) The performance of this assay has not been clinically validated in patients less than 2 years old. HIV-1/2 ANTIGEN AND ANTIBODIES, 4TH GENERATION W/ REFLEX NON-REACT ALVIN NON-REACT ALVIN [facility] Comment: HIV-1 antigen and HIV-1/HIV-2 antibodies were not detected. There is no laboratory evidence of HIV infection. PLEASE NOTE: This information has been disclosed to you from records whose confidentiality may be protected by state law. If your state requires such protection, then the state law prohibits you from making any further disclosure of the information without the specific written consent of the person to whom it pertains, or as otherwise permitted by law. A general authorization for the release of medical or other information is NOT sufficient for this purpose. For additional information please refer to http://education.Skylabs/faq/TVN771 (This link is being provided for informational/ educational purposes only.) The performance of this assay has not been clinically validated in patients less than 2 years old. 05/28/2020 10:3 1 AM EST us Beth Wheeler MD LAB BLOOD ORDERABLES Final Resul t [facility] [address] * HPV mRNA E6/E7 (11/16/2018 1:56 PM EDT) HPV mRNA E6/E7 Not Detected NOT DETECTED [facility] Comment: This test was performed using the APTIMA(R) HPV Assay ([employer] This assay detects E6/E7 viral messenger RNA (mRNA) from 14 high-risk HPV types (16,18,31,33,35,39,45,51, 52,56,58,59,66,68). For additional information please refer to: http://education.Skylabs/faq/OFS634a6 (This link is being provided for informational/ educational purposes only.) The analytical performance characteristics of this assay have been determined by [employer] [place], [place]. The modifications have not been cleared or approved by the FDA. This assay has been validated pursuant to the CLIA regulations and is used for clinical purposes. [facility] Performed by [facility], [facility], [address] [place] [address] Tiago Castillo M.D., Ph.D., Director of Laboratories , CLIA [id number] Please note: Effective 03/31/2016, HPV testing will be performed using [employer]'s APTIMA test which targets mRNA. Detecting mRNA instead of DNA, as in older methods, offers significant improvements in specificity. 11/16/2018 1:56 PM EDT Gladys Childers CNM HISTORICAL/NON ORDERABLE LABS Final Result [facility] [address] from Last 3 Months or Most Recently Relevant to Health Maintenance Insurance [facility] < [address] [place] [id number] [place] [address] [place] [address] Care Teams Medical Diagnostic Radiographer Relationship Specialty Start Date End Date Leon Mclean CNP [address] [place], [place] [address] [address] PCP - General Family Medicine 05/22/25
[2025-05-26 14:09] LABS: MANUAL DIFF FLAG NO
[2025-05-26 14:18] LABS: Hematocrit 45.6 % (37.0-47.0); Hemoglobin 14.2 g/dl (12.0-16.0); Imm Gran Abs Auto 0.04 X10*3/uL (0.00-0.03); Imm Gran Pct Auto 0.3 % (0.0-0.4); Lymphocytes Absolute Auto 4.2 X10*3/uL (1.2-4.9); Mean Corpuscular HGB Conc 31.1 g/dl (31.0-35.0); Mean Corpuscular Hemoglobin 25.6 pg (27.0-33.0); Mean Corpuscular Volume 82.3 fL (80.0-98.0); NRBC Abs Auto 0.000 X10*3/uL (0.0-0.012); NRBC Pct Auto 0.0 /100WBC (0.0-0.2); Platelet Count 314 X10*3/uL (160-400); Red Blood Count 5.54 X10*6/uL (4.20-5.50); White Blood Count 12.9 X10*3/uL (4.8-10.8)
[2025-05-26 14:29] LABS: Alanine Aminotransferase 18 U/L (0-31); Albumin Level 4.2 g/dL (3.5-5.0); Alkaline Phosphatase 119 U/L (39-117); Anion Gap 12 (12-20); Aspartate Amino Transferase 27 U/L (5-31); Blood Urea Nitrogen 14 mg/dL (9-16); Calcium 9.4 mg/dL (8.4-10.2); Carbon Dioxide 30 mmol/L (22-29); Chloride 97 mmol/L (96-108); Cholesterol 196 mg/dL (<200); Estimated Glomerular Filt Rate > 60; HDL Cholesterol 58 mg/dL (>40); Potassium 3.9 mmol/L (3.3-5.1); Sodium 135 mmol/L (135-145); Total Protein 7.7 g/dL (6.5-8.0); Triglycerides 187 mg/dL (<150)
[2025-05-26 15:01] LABS: Microalbum/Creatinine Ratio Ur 42.5 ug/mg cr (<30)
[2025-05-28 04:30] LABS: HBS Num1 0.00 mIU/mL (0-7.99); HBc Num1 0.09 S/CO (0.00-0.79); HBsAGNum1 0.31 S/CO (0.00-0.99); HIV Num 1 0.05 S/CO (0.00-0.99); Hepatitis B Surface Antigen Negative (Negative); ~HepC Num1 0.09 S/CO (0.00-0.79); ~Hepatitis B Surface Antibody NONREACTIVE (Nonreactive); ~Hepatitis C Antibody Nonreactive (Nonreactive)
== END 2025-05-26 09:43 | disposition home or self-care (01) ==
LOC: HO.CHCLDS 09:42
DX: Z00.00 Encounter for general adult medical examination without abnormal findings (principal); Z11.4 Encounter for screening for human immunodeficiency virus [HIV]; Z13.6 Encounter for screening for cardiovascular disorders; Z13.0 Encounter for screening for diseases of the blood and blood-forming organs and certain disorders involving the immune mechanism
CPT/HCPCS: 36415; 80053; 80061; 82043; 82570; 85025; 86704; 86706; 86803; 87340; 87389

== ENCOUNTER 2025-07-06 18:50 | Outpatient (REF) | payer OTHER, SELFPAY ==
--- OUTSIDE RECORDS SUMMARY | 2025-07-06 11:00 | XMS_ITS | Encounter Summary ---
Author Organization [employer] Address [address] [facility] [address] [place] [address] Care Team Providers Care Claim Rep Name Role Phone Leon Mclean CNP Primary Care Provider [phone] Reason for Visit * Reason Comments Gynecologic Exam Encounter Details Date Type Department Care Team (Latest Contact Info) Description 07/06/2025 11:00 AM EST Procedure Visit [facility] [address] [place] [address] Leon Mclean CNP [address] [place] [address] Vaginal dryness (Primary Dx); Encounter for screening for cervical cancer Social History Tobacco Use Types Packs/Day Years [...] I cannot afford it 05/24/2025 Comments No Intention Date Recorded No desire to become (finding) 1 09/06/2024 Sex and Gender Information Value Date Recorded Sex Assigned at Female 05/19/2022 10:21 AM EDT Legal Sex Female 10:21 AM EDT Gender Identity Choose not to disclose 10:21 AM EDT Sexual Orientation Choose not to disclose 2021 10:21 AM EDT documented as of this encounter Last Filed Vital Signs Vital Sign Reading Time Taken Comments Blood Pressure 150/84 07/06/2025 10:51 AM EST Pulse 80 07/06/2025 10:51 AM EST Temperature 36.6 C (97.9 F) 07/06/2025 10:51 AM EST Respiratory Rate 12 07/06/2025 10:51 AM EST Oxygen Saturation 99% 07/06/2025 10:51 AM EST Inhaled Oxygen Concentration - - Weight 83.5 kg (184 lb) 07/06/2025 10:51 AM EST Height 152.4 cm (5') 07/06/2025 10:51 AM EST Body Mass Index 35.94 07/06/2025 10:51 AM EST documented in this encounter Progress Notes * Leon Mclean CNP - 07/06/2025 11:00 AM EST Subjective Patient ID: Patricia Wolfe is a 49 y.o. adult who presents for pap smear. HPI Pt denies any urinary, vaginal or breast concerns. She does opt in to breast exam today. Last pap 11/16/2018 NILM HPV Neg Pt has AMAB sexual partner, she does not use contraception, she is not seeking . She would like repeat STI screening today. Review of Systems Objective Vitals: 07/06/25 1051 BP: (!) 150/84 Pulse: 80 Resp: 12 Temp: 97.9 ??F (36.6 ??C) SpO2: 99% Physical Exam Exam conducted with a job lithographer present. Constitutional: Appearance: Normal appearance. HENT: Head: Normocephalic and atraumatic. Chest: Breasts: Right: Normal. No swelling, bleeding, inverted nipple, mass, nipple discharge, skin change or tenderness. Left: Normal. No swelling, bleeding, inverted nipple, mass, nipple discharge, skin change or tenderness. Genitourinary: General: Normal vulva. Labia: Right: No rash, tenderness, lesion or injury. Left: No rash, tenderness, lesion or injury. Urethra: No prolapse, urethral pain, urethral swelling or urethral lesion. Vagina: Normal. Cervix: Discharge present. No cervical motion tenderness, friability, lesion, erythema, cervical bleeding or eversion. Uterus: Normal. Not deviated, not enlarged, not fixed, not tender and no uterine prolapse. Adnexa: Right adnexa normal and left adnexa normal. Right: No mass, tenderness or fullness. Left: No mass, tenderness or fullness. Rectum: Normal. Comments: Thin white discharge exuding from cervix. Lymphadenopathy: Upper Body: Right upper body: No supraclavicular, axillary or pectoral adenopathy. Left upper body: No supraclavicular, axillary or pectoral adenopathy. Neurological: General: No focal deficit present. Mental Status: Patricia is alert and oriented to person, place, and time. Psychiatric: Mood and Affect: Mood normal. Behavior: Behavior normal. Assessment/Plan Problem List Items Addressed This Visit None Visit Diagnoses Vaginal dryness - Primary Relevant Medications Estrogens Conjugated (Premarin) 0.625 MG/GM cream Encounter for screening for cervical cancer Relevant Medications Estrogens Conjugated (Premarin) 0.625 MG/GM cream Other Relevant Orders Pap Smear STI testing add on (NG, CT, Trich) Today pap smear was obtained. Anticipatory guidance discussed. Also provided pt education regarding perimenopause and menopause as well as GSM. She is experiencing vaginal dryness likely 2/2 to GSM. We will trial topical estrogen nightly x 2 weeks and then switch to twice weekly maintenance regimen. RTC as needed for routine care. documented in this encounter Plan of Treatment Scheduled Orders Name Type Priority Associated Diagnoses Orde r Schedule Pap Smear Pathology and Cytology Routine Encounter for screening for cervical cancer Ordered: 07/06/2025 STI testing add on (NG, CT, Trich) Pathology and Cytology Routine Encounter for screening for cervical cancer Ordered: 07/06/2025 documented as of this encounter Visit Diagnoses Diagnosis Vaginal dryness- Primary Postmenopausal atrophic vaginitis Encounter for screening for cervical cancer documented in this encounter Additional Health Concerns Assessment Noted Time PHQ-9 Depression Total Score: 10 025 10:48 AM EST documented as of this encounter Care Teams Claim Rep Relationship Specialty Start Date End Date Leon Mclean CNP [address] [place] [id number] PCP - General Family Medicine 05/22/25 documented as of this encounter
--- OUTSIDE RECORDS SUMMARY | 2025-07-06 19:59 | XMS_ITS | Encounter Summary ---
Author Organization [employer] Address [address] [facility] 7 [place] [address] Care Team Providers Care Junior Programmer Analyst Name Role Phone Leon Mclean CNP Primary Care Provider [phone] Reason for Visit * Reason Onset Date Comments chart prep 07/05/2025 Encounter Details Date Type Department Care Team ([facility] st Contact Info) Description 07/05/2025 Telephone [facility] [address] [place] [address] Leon Mclean CNP [address] [place] [address] chart prep Social History Tobacco Use Types [...] Telephone Encounter - Jeanette Matta MA - 07/05/2025 1:11 PM EST Chart Prep Labs: not applicable Images: not applicable Referrals: appointment pending Vaccines due: Covid and Hep B Screenings: mammogram Overdue care gaps: Glucose and Disability screen documented in this encounter Plan of Treatment Not on file documented as of this encounter Visit Diagnoses Not on filedocumented in this encounter Additional Health Concerns Assessment Noted Time PHQ-9 Depression Total Score: 10 025 10:48 AM EST documented as of this encounter Care Teams Junior Programmer Analyst Relationship Specialty Start Date End Date Leon Mclean CNP [address] [place] [address] FATOU LORENZO [id number] PCP - General Family Medicine 05/22/25 documented as of this encounter
--- OUTSIDE RECORDS SUMMARY | 2025-07-06 19:59 | XMS_ITS | Encounter Summary ---
Author Organization [employer] Address [address] [facility] [address] [place] [address] Care Team Providers Care Histotechnologist Name Role Phone Beth Wheeler MD Primary Care Provider [phone] Leon Mclean CNP Primary Care Provider [phone] Reason for Visit * Reason Comments Med Refill Encounter Details Date Type Department Care Team ([facility] st Contact Info) Description 11/07/2023 Refill [facility] [address] [place], [place] [phone] Beth Wheeler MD [address] [place], [place] [phone] Social History Tobacco Use Types Packs/Day Years [...] as of this encounter Plan of Treatment Not on file documented as of this encounter Visit Diagnoses Not on filedocumented in this encounter Care Teams Histotechnologist Relationship Specialty Start Date End Date Beth Wheeler MD [address] [place] [address] [phone] PCP - General Family Medicine 11/07/15 05/21/25 Leon Mclean CNP [address] [place], [place] [phone] PCP - General Family Medicine 05/22/25 documented as of this encounter
--- OUTSIDE RECORDS SUMMARY | 2025-07-06 19:59 | XMS_ITS | Encounter Summary ---
Author Organization [employer] Address [address] [facility] [address] [place] [address] Care Team Providers Care Charge Master Coordinator Name Role Phone Leon Mclean [employer]URN[employer] S[employer]TER Primary Care Provider [phone] Encounter Details Date Type Department Care Team (Latest Contact Info) Description 05/29/2025 Results Follow-Up [facility] [address] [place] [address] Leon McleanKISHAN [address] [place] [address] Lipid Panel, Standard, Comprehensive Metabolic Panel, Albumin, Random Urine W/Creatinine, Additional followed-up results: 8 Social History Tobacco Use Types Packs/Day Years [...] as of this encounter Miscellaneous Notes * Result Encounter Note - Leon Mclean CNP - 05/29/2025 9:29 AM EST Noted microalbuminuria and elevated LFTs no change to plan at this time we are re starting Trulicity and starting Jardiance, receiving labs in 2-3 months documented in this encounter Plan of Treatment Not on file documented as of this encounter Visit Diagnoses Not on filedocumented in this encounter Additional Health Concerns Assessment Noted Time PHQ-9 Depression Total Score: 10 025 10:48 AM EST documented as of this encounter Care Teams Charge Master Coordinator Relationship Specialty Start Date End Date Leon Mclean CNP [address] [place] [id number] PCP - General Family Medicine 05/22/25 documented as of this encounter
--- OUTSIDE RECORDS SUMMARY | 2025-07-06 19:59 | XMS_ITS | Clinical Summary ---
Author Organization [employer] Address [address] [facility] 7[address] [place] [address] Care Team Providers Care Hot Shot Name Role Phone Leon Mclean CLERICAL METHODS ANALYST Primary Care Provider [phone] Allergies No known active allergies Medications * This document contains information received from the source organization and may not represent a complete record from that organization. ibuprofen 600 MG tablet Take 1 tablet by mouth every 6 (six) hours. 05/27/20 21 Active Blood Glucose Monitoring Suppl (FreeStyle glucose monitoring) kitIndications:Type 2 diabetes mellitus without complication, without long-term current use of insulin ([facility]) 1 each in the morning and at bedtime. 1 each 3 07/22/19 23 Active Alcohol Swabs (Alcohol Prep) 70 % pads USE THREE DAILY 100 each 11 07/31/19 24 Active Blood Pressure kit Check blood pressure daily 1 kit 12/31/19 24 Active Continuous Glucose Twist Maker (FreeStyle Lorraine 2 Stebbins) deviceIndications:Type 2 diabetes mellitus without complication, with long-term current use of insulin ([facility]) Scan sensor every 8 hours 1 each 06/10/20 24 Active Continuous Glucose Sensor (FreeStyle Lorraine 2 Sensor) mis Apply 1 sensor every 14 days 2 each 2 06/10/20 24 Active glucose blood (FREESTYLE LITE) test stripIndications:Type 2 diabetes mellitus without complications ([facility]) TEST BLOOD SUGAR THREE TIMES DAILY USE TO TEST BLOOD SUGAR THREE TIMES DAILY 100 strip 12/31/19 25 Active Easy Touch Lancets 33G/Twist miscIndications:Type 2 diabetes mellitus without complication, without long-term current use of insulin ([facility]) TEST BLOOD SUGAR THREE TIMES DAILY 100 each 12/31/19 25 Active Heartburn Relief 10 MG tablet TAKE ONE TABLET EVERY MORNING NEEDED 30 tablet 3 01/25/20 25 Active hydroCHLOROthiazide (HYDRODiuril) 25 MG tablet TAKE ONE TABLET EVERY MORNING 30 tablet 11 02/24/20 25 Active lisinopril 40 MG tabletIndications:Primar y hypertension TAKE ONE TABLET EVERY MORNING 90 tablet 3 5 2:50 PM EST 02/24/20 25 Active Aspirin Adult Low Strength 81 MG EC tablet TAKE ONE TABLET EVERY EVENING 60 tablet 11 02/24/20 25 Active simvastatin (Zocor) 40 MG tabletIndications:Pure hypercholesterolemia Take 1 tablet (40 mg) by mouth at bedtime. 90 tablet 5 12:24 PM EST 05/03/20 25 Active Trulicity 0.75 MG/0.5ML solution auto-injectorIndications :Type 2 diabetes mellitus without complication, with long-term current use of insulin ([facility]) Inject 0.5 mL under the skin 1 (one) time per week. 2 mL 1 5 2:50 PM EST 05/24/20 25 Active empagliflozin (Jardiance) 10 MGIndications:Type 2 diabetes mellitus without complication, with long-term current use of insulin ([facility]) Take 1 tablet (10 mg) by mouth Once per day. 30 tablet 11 5 2:50 PM EST 05/24/20 25 026 Active Estrogens Conjugated (Premarin) 0.625 MG/GM creamIndications:Vaginal dryness Insert 0.625 mg into the vagina at bedtime. After two weeks, insert into the vagina every other night. 30 g 1 07/06/20 25 Active Active Problems Problem Noted Date Diagnosed Date [...] borderline intraocular pressure 03/05/2011 Amenorrhea 01/13/2011 Encounters Date Type Department Care Team Description 07/06/2025 11:00 AM EST Procedure Visit [facility] [address] [place] [address] Leon Mclean CNP Vaginal dryness (Primary Dx); Encounter for screening for cervical cancer 07/06/2025 Travel 07/06/2025 Orders Only [facility] [address] [place] [address] ProviderRebecca MD 07/05/2025 Telephone [facility] [address] [place] [address] Leon Mclean CNP chart prep 06/14/2025 Telephone [facility] [address] [place] [phone] Leon Mclean CNP Results 05/29/2025 Results Follow-Up [facility] [address] [place] [phone] Leon Mclean CNP Lipid Panel, Standard, Comprehensive Metabolic Panel, Albumin, Random Urine W/Creatinine, Additional followed-up results: 8 05/24/2025 10:45 AM EST Office Visit [facility] [address] [place] [address] Leon Mclean CNP Encounter for physical examination (Primary Dx); Encounter for screening mammogram for breast cancer; Encounter for immunization; Onychomycosis of great toe; Palpitations; Type 2 diabetes mellitus without complication, with long-term current use of insulin (HCC) 05/24/2025 Patient Outreach [facility] [address] [place] [phone] Leon Mclean CNP Care Coordination (CHW outreach for SDOH housing search-referral completed ) 05/24/2025 Travel 05/22/2025 Telephone [facility] [address] [place] [address] Beth Wheeler MD chart prep 05/03/2025 Refill [facility] [address] [place] [address] Pat Herrera, JANET Pure hypercholesterolemia from Last 3 Months Immunizations Immunization Administration [...] Mass Index 35.94 07/06/2025 10:51 AM EST Plan of Treatment Health Maintenance Due Date Last Done Comments CT Colonography 1975 Colonoscopy 1975 FIT 1975 Sigmoidoscopy 1975 Disability Screening 1975 Hepatitis B Vaccines (1 of 3 - 19+ 3-dose series) 09/26/1994 Pap Smear 09/26/1996 Mammogram 08/08/2022 08/08/2020, 04/04/2019 Cervical Cancer Screening 11/17/2023 HPV/Cotest 11/17/2023 11/16/2018 FOBT 01/06/2025 01/07/2024 Diabetes: Foot Exam 03/14/2025 03/14/2024, 03/14/2024, 03/14/2024, Additional history exists COVID-19 Vaccine ( - season) 2025 Diabetes: Hemoglobin A1C 08/24/2025 025, 06/10/2024, 12/31/2023, Additional history exists Zoster Vaccines (1 of 2) 09/26/2025 Depression Monitoring 11/21/2025 05/24/2025, 025 Alcohol/Substance Use Screening 05/24/2026 05/24/2025 SDOH Screening 05/24/2026 05/24/2025 Diabetes: Urine Protein Screening 05/26/2026 05/26/2025 Lipid Panel 05/26/2026 05/26/2025, 10/2022, 06/20/2020 Family Planning (PISQ) 07/06/2026 07/06/2025 Tobacco Screening 07/06/2026 07/06/2025 Colorectal Cancer Screening 01/06/2027 FIT DNA/Cologuard 01/06/2027 01/07/2024 Eye Exam 07/05/2027 07/05/2025, 06/30/2024 DTaP/Tdap/Td Vaccines (2 - Td or Tdap) 05/27/2028 05/27/2018 RSV Patients and Patients Aged 60 years or older (1 - 1-dose 75+ series) 09/26/2050 Influenza Vaccine Completed 05/24/2025, , 10/04/2020, Additional history exists Pneumococcal Vaccine: Pediatrics (0 to 5 Years) and At-Risk Patients (6 to 49) Years Completed 05/24/2025 HIV Screening Completed 05/26/2025, 03/2020, 08/05/2019 Hepatitis C Screening Completed 05/26/2025 , 05/28/2020, 08/05/2019 HIB Vaccines Aged Out No longer eligi [...] Procedure Name Priority Date/Time Associated Diagnosis Comments HM DIABETES EYE EXAM Routine 07/05/2025 ALBUMIN, RANDOM URINE W/CREATININE Routine 05/26/2025 9:50 AM EST Encounter for physical examination HEPATITIS C AB W/REFL TO HCV RNA, QN, PCR Routine 05/26/2025 9:49 AM EST Encounter for physical examination HIV 1/2 ANTIGEN/ANTIBODY, FOURTH GENERATION W/RFL Routine 05/26/2025 9:49 AM EST Encounter for physical examination HEPATITIS B SURFACE ANTIGEN, EIA Routine 05/26/2025 9:49 AM EST Encounter for physical examination HEPATITIS B CORE AB TOTAL Routine 05/26/2025 9:49 AM EST Encounter for physical examination HEPATITIS B SURFACE ANTIBODY, QUALITATIVE Routine 05/26/2025 9:49 AM EST Encounter for physical examination CBC WITH AUTO DIFFERENTIAL Routine 05/26/2025 9:49 AM EST Encounter for physical examination COMPREHENSIVE METABOLIC PANEL Routine 05/26/2025 9:49 AM EST Encounter for physical examination LIPID PANEL, STANDARD Routine 05/26/2025 9:49 AM EST Encounter for physical examination POCT GLYCATED HEMOGLOBIN, TOTAL Routine 05/24/2025 11:02 AM EST Encounter for physical examination POCT GLUCOSE Routine 05/24/2025 11:01 AM EST Encounter for physical examination LAB COLOGUARD COLON CANCER SCREEN Routine 01/07/2024 11:37 AM EDT Encounter for screening for malignant neoplasm of colon MAMMOGRAM GENERIC Routine 08/08/2020 12: 48 PM EST [facility] HISTORICAL HPV MRNA E6/E7 Routine 11/16/2018 1:56 PM EDT from Last 3 Months or Most Recently Relevant to Health Maintenance Results * Diabetes Eye Exam (07/05/2025) Historical Provider HEALTH MAINTENANCE Final Result * (ABNORMAL) Albumin, Random Urine W/Creatinine (05/26/2025 9:50 AM EST) Creatinine, Urine 288.79 mg/dL [facility] Microalbumin Urine 123.0 mg/L H [facility] Microalbum Creatinine Ratio Ur 42.5(H) <30 ug/mg cr [facility] Comment:Albumin/Creatinine R atio Reference Ranges: Normal: < 30 ug/mg creatinine Microalbuminuria: 30 - 300 ug/mg creatinineClinical Albuminuria: > 300 ug/mg creatinine Urine (Urine, Random) 05/26/2025 9:50 AM EST 05/26/2025 2:20 PM EST Leon Mclean [facility] URINE ORDERABLES Nataly l Result Performing Organization Address City/State/[facility] Co de Phone Number [facility] [address] [place] [phone] * (ABNORMAL) CBC auto differential (05/26/2025 9:49 AM EST) White Blood Count 12.9(H) 4.8 - 10.8 X10*3/uL [facility] Red Blood Count 5.54(H) 4.20 - 5.50 X10*6/uL [facility] Hemoglobin 14.2 12.0 - 16.0 g/dl [facility] Hematocrit 45.6 37.0 - 47.0 % [facility] Mean Corpuscular Volume 82.3 80.0 - 98.0 fL [facility] Mean Corpuscular Hemoglobin 25.6(L) 27.0 - 33.0 pg [facility] Mean Corpuscular HGB Conc 31.1 31.0 - 35.0 g/dl [facility] Red Cell Distribution Width 15.1 11.0 - 16.0 % [facility] Platelet Count 314 160 - 400 X10*3/uL [facility] Mean Platelet Volume 12.1 9.4 - 12.3 fL [facility] Neutrophils Percent Auto 58.6 45 - 73 % [facility] Imm Gran Pct Auto 0.3 0.0 - 0.4 % [facility] Lymphocytes Percent Auto 32.3 20 - 40 % [facility] Monocytes Percent Auto 7.0 2 - 11 % [facility] Eosinophils Percent Auto 1.3 0 - 4 % [facility] Basophils Percent Auto 0.5 0 - 2 % [facility] NRBC Pct Auto 0.0 0.0 - 0.2 /100WBC [facility] Neutrophils Absolute Auto 7.6 2.0 - 8.3 x10*3/uL [facility] Imm Gran Abs Auto 0.04(H) 0.00 - 0.03 X10*3/uL [facility] Lymphocytes Absolute Auto 4.2 1.2 - 4.9 X10*3/uL [facility] Monocytes Absolute Auto 0.9 0.1 - 1.2 X10*3/uL [facility] Eosinophils Absolute Auto 0.2 0.0 - 0.4 X10*3/uL [facility] Basophils Absolute Auto 0.1 0.0 - 0.2 X10*3/uL [facility] NRBC Abs Auto 0.000 0.0 - 0.012 X10*3/uL [facility] Blood Venous blood specimen / Unknown 05/26/2025 9:49 AM EST 05/26/2025 2:02 PM EST [facility] CLERICAL METHODS ANALYST LAB BLOOD ORDERABLES Nataly l Result [facility] [address] [place] [phone] * Hepatitis C Antibody with Reflex to HCV, RNA, Quantitative, Real-Time PCR (05/26/2025 9:49 AM EST) Hepatitis C Antibody Nonreactive Nonreactive [facility] Comment:Antibodies to HCV no t detected; does not exclude early acuteHCV infection. Blood Venous blood specimen / Unknown 05/26/2025 9:49 AM EST 05/26/2025 2:02 PM EST [facility] LAB BLOOD ORDERABLES Nataly l Result Performing Organization Address [facility] Co de Phone Number [facility] [address] [place] [phone] * Hepatitis B surface antigen, EIA (05/26/2025 9:49 AM EST) Pathologist [facility] Hepatitis B Surface Ag Negative Negative [facility] Blood Venous blood specimen / Unknown 05/26/2025 9:49 AM EST 05/26/2025 2:02 PM EST [facility] LAB BLOOD ORDERABLES Nataly l Result Performing Organization Address [facility] Co de Phone Number [facility] [address] [place] [phone] * Hepatitis B Core Antibody, Total (05/26/2025 9:49 AM EST) Pathologist [facility] Hepatitis B Core Antibody Nonreactive Nonreactive [facility] Blood Venous blood specimen / Unknown 05/26/2025 9:49 AM EST 05/26/2025 2:02 PM EST Result [facility] LAB BLOOD ORDERABLES Nataly l Result Performing Organization Address [facility] Co de Phone Number [facility] [address] [place] [phone] * HIV-1/2 Antigen and Antibodies, Fourth Generation, with Reflexes (05/26/2025 9:49 AM EST) Pathologist [facility] HIV AB/AG Nonreactive Nonreactive [facility] Comment:HIV-1 p24 Ag and/or HIV-1/HIV-2 Ab not detected.A test result that is nonreactive does not exclude thepossibility of exposure to or infection with HIV-1 and/orHIV-2. Nonreactive results in this assay for individualswith prior exposure to HIV-1 and/or HIV-2 may be due toantigen and antibody levels that are below the limit ofdetection of this assay.The [employer] HIV Ag/Ab Combo assay result andsupplemental assay results should be interpreted inconjunction with the patient's clinical presentation,history and other laboratory results. If the results areinconsistent with clinical evidence, additional testing issuggested to confirm the result. Blood Venous blood specimen / Unknown 05/26/2025 9:49 AM EST 05/26/2025 2:02 PM EST [facility] LAB BLOOD ORDERABLES Nataly l Result Performing Organization Address City/[facility]/ZIP Co de Phone Number [facility] [address] [place] [phone] * Hepatitis B Surface Antibody, Qualitative (05/26/2025 9:49 AM EST) ~Hepatitis B Surface Antibody NONREACTIVE Nonreactive [facility] Comment:Nonreactive: < 8.00 mIU/mL Blood Venous blood specimen / Unknown 05/26/2025 9:49 AM EST 05/26/2025 2:02 PM EST [facility] LAB BLOOD ORDERABLES Nataly l Result Performing Organization Address City/[facility]/ZIP Co de Phone Number [facility] [address] [place] [phone] * (ABNORMAL) Lipid Panel, Standard (05/26/2025 9:49 AM EST) Triglycerides 187(H) <150 mg/dL [facility] Comment:Desirable Triglyceri de: less than 150 mg/dLBorderline High Triglyceride 150-199 mg/dLHigh Triglyceride: 200-499 mg/dLVery High Triglyceride: greater than or equal to 5OO mg/dL Cholesterol 196 <200 mg/dL [facility] Comment:Desirable Cholestero l: less than 200 mg/dLBorderline High Cholesterol: 200-239 mg/dLHigh Cholesterol: greater than 239 mg/dL LDL Cholesterol Calculated 101(H) <100 mg/dL [facility] Comment:Desirable LDL: less than 100 mg/dLNear Optimal/Above Optimal LDL: 110- 129 mg/dLBorderline High LDL: 130-159 mg/dLHigh LDL: 160-189 mg/dLVery High LDL: greater than or equal to 190 mg/dL HDL Cholesterol 58 >40 mg/dL [facility] Comment:Desirable HDL: great er than 40 mg/dL Note: This HDL assay may give artificially low results in patients with liver disease. Blood Venous blood specimen / Unknown 05/26/2025 9:49 AM EST 05/26/2025 2:02 PM EST [facility] LAB BLOOD ORDERABLES Nataly l Result Performing Organization Address City/State/[facility] Co de Phone Number [facility] [address] [place] [phone] * (ABNORMAL) Comprehensive Metabolic Panel (05/26/2025 9:49 AM EST) Sodium 135 135 - 145 mmol/L [facility] Potassium 3.9 3.3 - 5.1 mmol/L [facility] Chloride 97 96 - 108 mmol/L [facility] Carbon Dioxide 30(H) 22 - 29 mmol/L [facility] Anion Gap 12 12 - 20 [facility] Urea Nitrogen (BUN) 14 9 - 16 mg/dL [facility] Creatinine, Serum 0.63 0.5 - 1.4 mg/dL [facility] Estimated Glomerular Filt Rate >60 [facility] Comment:Chronic Kidney Disea se: Estimated GFR < 60 mL/min/1.00r1Dnihob Kidney Disease: Estimated GFR < 15 mL/min/1.73m2 Glucose 225(H) 60 - 115 mg/dL [facility] Calcium 9.4 8.4 - 10.2 mg/dL [facility] Bilirubin, Total 0.5 0.0 - 1.0 mg/dL [facility] Aspartate Amino Transferase 27 5 - 31 U/L [facility] Alanine Aminotransferase 18 0 - 31 U/L [facility] Total Protein 7.7 6.5 - 8.0 g/dL [facility] Albumin Level 4.2 3.5 - 5.0 g/dL [facility] Alkaline Phosphatase 119(H) 39 - 117 U/L [facility] Blood Venous blood specimen / Unknown 05/26/2025 9:49 AM EST 05/26/2025 2:02 PM EST Result [facility] LAB BLOOD ORDERABLES Nataly l Result Performing Organization Address City/State/[facility] Co de Phone Number [facility] [address] [place] [phone] * (ABNORMAL) POCT A1c (05/24/2025 11:02 AM EST) [facility] Hemoglobin A1C 11.3(A) 4.0 - 5.7 % QC Media Lot # Comment:[id number] Lot# Expiration Date Comment:11/10/2026 Blood 05/24/2025 11:0 2 AM EST Result [facility] POINT OF CARE TEST ENTER/ EDIT ORDERABLES Final Result * (ABNORMAL) POCT glucose manually resulted (05/24/2025 11:01 AM EST) [facility] Glucose Blood, POC 275(A) 60 - 200 mg/dL QC Media Lot # Comment:[id number] Lot# Expiration Date Comment:08/27/2025 Blood Capillary blood specimen / Unknown 05/24/2025 11:01 AM EST Result [facility] POINT OF CARE TEST ENTER/ EDIT ORDERABLES Final Result * Cologuard?? colon cancer screening (01/07/2024 11:37 AM EDT) Cologuard Result Negative Negative 01/13/20 24 6:22 AM EDT [employer] (CLIA #:[id number]) Comment: NEGATIVE TEST RESULT. A negative Cologuard [...] (Pola Mendoza al, N Engl J Med 2014;370(14):3654-1620) The normal value (reference range) for this assay is negative. COLOGUARD RE-SCREENING RECOMMENDATION: Periodic colorectal cancer screening is an important part of preventive healthcare for asymptomatic individuals at average risk for colorectal cancer. Following a negative Cologuard result, the [place] [employer] and U.S. Multi-Society Task Force screening guidelines recommend a Cologuard re-screening interval of 3 years. References: [place] [employer] Guideline for Colorectal Cancer Screening: https://www.cancer.org/cancer/tewhi-bhjhta-mkahbb/ylykvanjj-slgrzbmrz-loqagkx/ac s-rec ommendations.html.; Ceferino DK, Urbano CR, Tony RossK, Colorectal Cancer Screening: Recommendations for Physicians and Patients from the U.S. Multi-Society Task Force on Colorectal Cancer Screening , Am J Gastroenterology 2017; 112:0667-4787. TEST DESCRIPTION: Composite algorithmic analysis of stool [...] (Pola Mendoza al, N Engl J Med 2014;370(14):7321-4581.) Cologuard may produce a false negative or false positive result (no colorectal cancer or precancerous polyp present at colonoscopy follow up). A negative Cologuard test result does not guarantee the absence of CRC or advanced adenoma (pre-cancer). The current Cologuard screening interval is every 3 years. ([place] [employer] Society and U.S. Multi-Society Task Force). Cologuard performance data in a 10,000 patient pivotal study using colonoscopy as the reference method can be accessed at the following location: www.[employer].Colizer/results. Additional description of the Cologuard test process, warnings and precautions can be found at www.fos4Xrd.com. Stool specimen (specimen) 01/07/2024 11:37 AM EDT 01/09/2024 1:02 PM EDT Beth Wheeler MD LAB MOLECULAR DIAGNOSTICS ORDERA BLES Final Result [employer] (CLIA #:[id number]) [address] [place] [id number], * Mammography Report 1 (08/08/2020 12:48 PM EST) Anatomical Region Laterality Modality Breast Bilateral Mammography 08/08/2020 12:4 8 PM EST Narrative 08/09/2020 9:48 AM EST Refer to the Notes tab for result details [facility] Procedure: Mammography Report 1 Procedure Note Provider, MD Rebecca - 10/11/2022 Refer to the Notes tab for result details [facility] Procedure: Mammography Report 1 us Beth Wheeler MD IM BI PROCEDURES Final Result * HPV mRNA E6/E7 (11/16/2018 1:56 PM EDT) HPV mRNA E6/E7 Not Detected NOT DETECTED [facility] Comment: This test was performed using the APTIMA(R) HPV Assay ([employer] This assay detects E6/E7 viral messenger RNA (mRNA) from 14 high-risk HPV types (16,18,31,33,35,39,45,51, 52,56,58,59,66,68). For additional information please refer to: http://education.[employer]/faq/FIH308e3 (This link is being provided for informational/ educational purposes only.) The analytical performance characteristics of this assay have been determined by [facility] [place], [place]. The modifications have not been cleared or approved by the FDA. This assay has been validated pursuant to the CLIA regulations and is used for clinical purposes. Test Performed by [facility] [employer] [facility], [address] [place] [address] Tiago Castillo M.D., Ph.D., Director of Laboratories , CLIA [id number] Please note: Effective 03/31/2016, HPV testing will be performed using [employer]'s APTIMA test which targets mRNA. Detecting mRNA instead of DNA, as in older methods, offers significant improvements in specificity. 11/16/2018 1:56 PM EDT us Gladys Childers CNM HISTORICAL/NON ORDERABLE LABS Final Result [facility] [address] from Last 3 Months or Most Recently Relevant to Health Maintenance Insurance [employer]ARE < 65 [place] [id number] * Guarantor: Patricia Hunt Account Type Relation to Patient Date of Phone Billing Address Personal/[place] [address] Care Teams Hot Shot Relationship Specialty Start Date End Date Leon Mclean CNP [address] [place] [address] FATOU LORENZO [phone] PCP - General Family Medicine 05/22/25
--- OUTSIDE RECORDS SUMMARY | 2025-07-06 19:59 | XMS_ITS | Encounter Summary ---
Author Organization [employer] Address [address] [facility] [address] [place] [address] Care Team Providers Care Cemetery Vault Installer Name Role Phone Leon Mclean KISHAN Primary Care Provider [phone] Encounter Details Date Type Department Care Team (Late st Contact Info) Description 07/06/2025 Orders Only [facility] [address] [place], [place] [phone] Provider, MD Rebecca Social History Tobacco Use Types Packs/Day Years [...] is your housing situation today? I have bellanathen schroeder 05/24/[address] you [...] on file documented as of this encounter Procedures Procedure Name Priority Date/Time Associated Diagnosis Comments DIABETES EYE EXAM Routine 07/05/2025 documented in this encounter Results * Diabetes Eye Exam (07/05/2025) us Historical Provider HEALTH MAINTENANCE Final Result documented in this encounter Visit Diagnoses Not on filedocumented in this encounter Additional Health Concerns Assessment Noted Time PHQ-9 Depression Total Score: 10 025 10:48 AM EST documented as of this encounter Care Teams Cemetery Vault Installer Relationship Specialty Start Date End Date Leon Mclean CNP [address] [place] [phone] PCP - General Family Medicine 05/22/25 documented as of this encounter
--- OUTSIDE RECORDS SUMMARY | 2025-07-06 19:59 | XMS_ITS | Encounter Summary ---
Author Organization [employer] Address [address] [facility] [address] [place] [address] Care Team Providers Care Agency Sales Director Name Role Phone Leon Mclean CNP Primary Care Provider [phone] Encounter Details Date Type Department Care Team (Latest Contact Info) Description 07/06/2025 Travel Social History Tobacco Use Types Packs/Day [...] documented as of this encounter Care Teams Agency Sales Director Relationship Specialty Start Date End Date Leon Mclean CNP [address] [place] [phone] PCP - General Family Medicine 05/22/25 documented as of this encounter
[2025-07-08 15:48] LABS: C. trachomatis RNA TMA NOT DETECTED (NOT DETECTED); N. gonorrhoeae RNA TMA NOT DETECTED (NOT DETECTED)
[2025-07-08 17:14] LABS: Trichomonas (NAAT) NOT DETECTED (NOT DETECTED)
== END 2025-07-06 18:51 | disposition home or self-care (01) ==
LOC: HO.HHCLNP 18:50
DX: Z12.4 Encounter for screening for malignant neoplasm of cervix (principal); Z20.2 Contact with and (suspected) exposure to infections with a predominantly sexual mode of transmission; Z11.51 Encounter for screening for human papillomavirus (HPV)
CPT/HCPCS: 87491; 87591; 87626; 87661; 88175